=== PATIENT | female | born 1970 | race Caucasian/White ===

== ENCOUNTER 2020-03-16 17:44 | Emergency (ER) | payer OTHER ==
[~2020-03-16] VITALS: Ht 160 cm; Wt 98.4 kg
[2020-03-16] MEDS ORDERED: FUROSEMIDE 20 M20 MG PO (18:05)
[2020-03-16] MEDS ORDERED: BACLOFEN 10MG T10 MG PO (20:49)
[2020-03-16] MEDS ORDERED: MEDROLDOSEPACK PO (20:49)
[2020-03-16] MEDS ORDERED: HYDROCODON-ACE1 EAC8 PO (20:49)
[2020-03-16 21:00] VITALS: BP 127/70
== END 2020-03-16 21:02 | disposition home or self-care (01) ==
LOC: M.ERS 17:44
DX: M54.12 Radiculopathy, cervical region (principal); Z88.2 Allergy status to sulfonamides